=== PATIENT | male | born 1995 | race Caucasian/White ===

== ENCOUNTER 2022-04-14 09:39 | Emergency (ER) | payer BC, SELFPAY ==
[2022-04-14 09:40] VITALS: BP 135/76; PULSE 77; RESP 14; TEMP 36.6; O2SAT 97; BMI 24.7
[2022-04-14 09:43] VITALS: BP 150/76; PULSE 82; RESP 20; O2SAT 97
--- NOTE | 2022-04-14 09:52 | EDS_ITS ---
HPI History of Present Illness Chief Complaint: Shortness of Breath Informant: patient and EMS Narrative Narrative: 27-year-old male presenting to the emergency room with near syncope. Patient states that he was at work suddenly he began to get very lightheaded sweaty breathing fast and felt like he may pass out. He believes he passed out for possibly 1 second and then awoke. EMS was called. Patient states he is feeling better. He denies any chest pains or heart racing or palpitations. He states this is happened about 4 or 5 times in the past. He notes he was breathing very fast and his hands and his feet began to tingle and cramp up. [facility] Medical History Anxiety OCD (obsessive compulsive disorder) Home Medications No Known/Unobtainable [No Known Home Medications] 09/25/15 [History Last Taken Unknown] Allergy/AdvReac Type Severity Reaction Status Date / Time No Known Allergies Allergy Verified 04/23/17 16:47 Surgical History History of hernia surgery Social History (Updated 04/14/22 @ 09:[address] Chandana White DO) Smoking Status: Never smoker substance use type: does not use ROS ROS ED Constitutional Constitutional ED: Denies chills or weight loss Eyes Eyes: Denies change in vision or diplopia ENT ENT ED: Denies ear pain, rhinorrhea or sore throat Cardiovascular Cardiovascular: Reports other Details: Near syncope ; Denies chest pain, orthopnea, palpitations or racing heartbeat Respiratory/Chest Respiratory/Chest: Reports dyspnea; Denies cough or orthopnea Gastrointestinal Gastrointestinal: Denies abdominal pain, diarrhea, nausea or vomiting Genitourinary Genitourinary ED: Denies dysuria, hematuria or urinary frequency Musculoskeletal Musculoskeletal: Denies arthralgias or myalgias Integumentary Denies abscess or rash Neurologic Neurologic: Reports paresthesias; Denies headache(s) or weakness Psychiatric Psychiatric: Denies anxiety, depression, suicidal ideation or suicidal thoughts Endocrine Endocrinology: Denies polydipsia, polyphagia or polyuria Allergic/Immunologic Allergic/Immunologic ED: Denies mouth swelling, tongue swelling or urticaria EXAM Physical Exam Const Vital Signs: 04/14/22 09:40 04/14/22 09:43 04/14/22 09:43 Temperature 97.9 F Temperature Source Oral Pulse Rate 77 82 Respiratory Rate 14 20 H Respiratory Effort Normal Non-Labored Respiratory Depth Normal Respiratory Pattern Normal Blood Pressure 135/76 H 150/76 H Blood Pressure Mean 95 100 Pulse Ox 97 97 Oxygen Delivery Method Room Air Room Air Room Air Positive well nourished and well developed General Appearance ED: well developed HEENT Reports normocephalic, head/scalp atraumatic and moist mucous membranes Eyes PERRL and EOMs intact bilaterally Neck no lymphadenopathy, supple and no JVD Resp normal respiratory effort and clear to auscultation bilaterally Cardio regular rate, regular rhythm and no murmurs GI normal to inspection, nondistended, normoactive bowel sounds and non-tender Palpation: soft Back/Spine no CVA tenderness and normal ROM Extremity normal to inspection General Extremety ED: Negative for edema General Extremity: Negative for edema Neuro oriented x3 and CN's II-XII intact bilaterally Sensorium / Orientation: alert Motor Exam: strength 5/5 throughout Psych mental status grossly normal Mood & Affect: Negative for depressed or tearful Skin no rashes or lesions noted and no wounds MDM MDM MDM Narrative Medical decision making narrative: Patient has remained in a sinus rhythm on the monitor. My interpretation of the chest x-ray is no acute process. Troponin of 4. Glucose 91. Hemoglobin 15.5. At this point patient will be discharged home. He may follow-up with cardiology or primary care. Lab Data Attestation: I reviewed the patient's lab results. Labs: Laboratory Results - last 24 hr 04/14/22 04/14/22 10:05 10:05 WBC 6.2 RBC 5.06 Hgb 15.5 Hct 45.6 MCV 90.1 MCH 30.6 MCHC 34.0 RDW Std Deviation 40.3 RDW Coeff of Jason 12.2 Plt Count 196 MPV 9.8 Immature Gran % (Auto) 0.200 Neut % (Auto) 52.3 Lymph % (Auto) 33.2 [place] % (Auto) 11.1 H Eos % (Auto) 2.2 Baso % (Auto) 1.0 Absolute Neuts (auto) 3.3 Absolute Lymphs (auto) 2.07 Nucleated RBC % 0 Sodium 141 Potassium 3.3 L Chloride 108 H Carbon Dioxide 28.0 Anion Gap 5 BUN 19 H Creatinine 0.91 Estim Creat Clear Calc 128.72 Est GFR (MDRD) Af Amer 128 Est GFR (MDRD) Non-Af 105 BUN/Creatinine Ratio 20.9 H Glucose 91 Calcium 9.4 Troponin I High Sens 4 Radiography Diagnostic Testing: Clinical Impression(s) from Imaging Studies Chest X-Ray 04/14/22 10:15 IMPRESSION: Normal x-ray examination of the chest. Electronically Signed: Tomy Mike MD at 10:27 EDT , EKG Initial EKG: Attestation: I personally reviewed and interpreted this EKG as follows: Comments: Normal sinus rhythm with a ventricular rate of 69 bpm. Discharge Plan Triage Chief Complaint: Shortness of Breath ED Provider: Chandana White Dx/Rx/DC Orders Clinical Impression: Near syncope Instructions: Causes of Syncope Prescriptions: No Action No Known Home Medications Primary Care Provider: Care Physician,No Primary Referrals: Jan Santoro MD [STAFF PHYSICIAN] - As Needed (for cardiology evaluation) Jonn Alexander MD [NON-STAFF] - Disposition Disposition: Home, Self Care
--- NOTE | 2022-04-14 09:52 | EKG12_ITS ---
Test Reason : SOB Blood Pressure : / mmHG Vent. Rate : 069 BPM Atrial Rate : 069 BPM P-R Int : 146 ms QRS Dur : 108 ms QT Int : 388 ms P-R-T Axes : 063 056 065 degrees QTc Int : 415 ms Normal sinus rhythm with sinus arrhythmia Incomplete right bundle branch block Confirmed by MANOJ GILBERT, PANTERA ([id number]), publication editor BOWEN HSU ([id number]) on 04/16/2022 8:54:44 AM Referred By: ESTELLE/GABRIELA Confirmed By:PANTERA ARANDA MD
[2022-04-14 10:12] LABS: Absolute Lymphocyte Count 2.07 X10^3/uL (0.83-4.51); Absolute Neutrophil Count 3.3 X10^3/uL (2.0-7.7); Basophil# 0.06 X10^3/uL; Eosinophil# 0.14 X10^3/uL; Eosinophils% 2.2 % (0-5); Hematocrit 45.6 % (40-54); Hemoglobin 15.5 g/dL (13.0-16.5); Lymphocyte # 2.07 X10^3/ul (0.83-4.51); Lymphocyte % 33.2 % (19-41); Mean Corpuscular Hgb 30.6 pg (27.0-32.0); Mean Corpuscular Volume 90.1 fL (80-94); Mean Platelet Vol. 9.8 fl (6.2-12.0); Monocyte# 0.69 X10^3/uL; Monocyte% 11.1 % (0-10); NRBC Flagged by Analyzer 0 % (0-5); Neutrophil # 3.26 X10^3/uL (2.7-7.7); Neutrophil % 52.3 % (47-70); Platelet Count 196 K/mm3 (150-450); RBC Distribution Width CV 12.2 % (11.6-14.6); RBC Distribution Width SD 40.3 fl (35.1-43.9); Red Blood Count 5.06 M/mm3 (4.6-6.2); White Blood Count 6.2 K/mm3 (4.4-11.0)
--- NOTE | 2022-04-14 10:15 | RAD_ITS ---
STUDY: X-RAY CHEST REASON FOR EXAM: Male, 27 years old. Near syncope TECHNIQUE: Single AP portable view of the chest. COMPARISON: None. FINDINGS: EKG electrodes are seen. The lungs are clear and expanded. There is no demonstrated pleural abnormality. Normal size heart. Normal mediastinum and oscar. Normal visualized pulmonary arteries. Normal visualized aortic arch and descending thoracic aorta. Normal visualized thoracic spine. Normal visualized ribs, clavicles, and shoulders. There is no demonstrated abnormality of the visualized soft tissue structures of the upper abdomen. RAD/Chest 1 View (Portable) IMPRESSION: Normal x-ray examination of the chest. Electronically Signed: Tomy Mike MD at 10:27 EDT ,
[2022-04-14 10:29] LABS: Anion Gap 5 (5-15); BUN 19 mg/dL (7-18); BUN/Creat Ratio 20.9 RATIO (10-20); Calcium,Total 9.4 mg/dL (8.5-10.1); Chloride 108 mmol/L (98-107); Creatinine, Serum 0.91 mg/dL (0.70-1.30); EST Glomerular Filtration Rate 105 mL/min (>60); Est Glom Filt Rate - Afr Amer 128 mL/min (>60); Estimated Creatinine Clearance 128.72 ml/min; Glucose 91 mg/dL (74-106); Potassium 3.3 mmol/L (3.5-5.1); Sodium Level 141 mmol/L (136-145); Troponin-I HS 4 pg/mL (3.0-78.0)
[2022-04-14 10:49] VITALS: BP 143/85; PULSE 82; RESP 18; O2SAT 99
== END 2022-04-14 10:50 | disposition home or self-care (01) ==
PROVIDERS: Emergency Provider Emergency Medicine; Visit Provider Emergency Medicine
DX: R55 Syncope and collapse (principal); R06.02 Shortness of breath; F42.9 Obsessive-compulsive disorder, unspecified
CPT/HCPCS: 71045; 80048; 84484; 85025; 93005; 99285; A4216

== ENCOUNTER 2023-10-05 15:02 | Emergency (ER) | payer BC, SELFPAY ==
[2023-10-05 15:04] VITALS: BP 147/79; PULSE 93; RESP 24; TEMP 36.6; O2SAT 99; BMI 26.1
--- NOTE | 2023-10-05 15:28 | EKG12_ITS ---
Test Reason : DIZZINESS/SYNCOPE Blood Pressure : / mmHG Vent. Rate : 093 BPM Atrial Rate : 093 BPM P-R Int : 152 ms QRS Dur : 108 ms QT Int : 340 ms P-R-T Axes : 070 018 059 degrees QTc Int : 422 ms Normal sinus rhythm Normal ECG Confirmed by DENZEL GILBERT, MAREN ([id number]), supervising film or videotape editor JOSE M ADAMS ([id number]) on 10/12/2023 8:18:31 AM Referred By: YESICA Confirmed By:MAREN MAHONEY MD
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
[2023-10-05] MEDS: 0.9% Normal Saline (1000mL) 1,000 ML 1000 ML IV (15:38)
[2023-10-05 15:44] VITALS: BP 128/68; BP 132/69; BP 144/72; PULSE 110; PULSE 89; PULSE 92
[2023-10-05 15:45] LABS: Absolute Lymphocyte Count 1.08 X10^3/uL (0.83-4.51); Absolute Neutrophil Count 8.7 X10^3/uL (2.0-7.7); Basophil# 0.06 X10^3/uL; Basophil% 0.6 % (0-1); Eosinophil# 0.19 X10^3/uL; Eosinophils% 1.8 % (0-5); Hematocrit 49.3 % (40-54); Hemoglobin 16.1 g/dL (13.0-16.5); Lymphocyte # 1.08 X10^3/ul (0.83-4.51); Lymphocyte % 10.2 % (19-41); Mean Corp Hgb Conc 32.7 g/dL (32-36); Mean Corpuscular Hgb 29.8 pg (27.0-32.0); Mean Corpuscular Volume 91.3 fL (80-94); Mean Platelet Vol. 10.4 fl (6.2-12.0); Monocyte# 0.54 X10^3/uL; Monocyte% 5.1 % (0-10); NRBC Flagged by Analyzer 0 % (0-5); Neutrophil # 8.72 X10^3/uL (2.7-7.7); Neutrophil % 82.1 % (47-70); Platelet Count 214 K/mm3 (150-450); RBC Distribution Width CV 12.2 % (11.6-14.6); RBC Distribution Width SD 40.5 fl (35.1-43.9); White Blood Count 10.6 K/mm3 (4.4-11.0)
[2023-10-05] MEDS: 0.9% Normal Saline (1000mL) 1,000 ML 999 ML IV (17:01)
[2023-10-05 17:33] LABS: ALB/GLOB Ratio 1.1 RATIO (0.9-2.4); AST(SGOT) 18 U/L (15-37); Alanine Aminotransfer ALT/SGPT 29 U/L (16-61); Albumin, Serum 3.9 g/dL (3.2-5.0); Alkaline Phosphatase 87 U/L (45-117); Anion Gap 4 (5-15); BUN 18 mg/dL (7-18); BUN/Creat Ratio 18.2 RATIO (10-20); Calcium,Total 9.2 mg/dL (8.5-10.1); Chloride 108 mmol/L (98-107); Creatinine, Serum 0.99 mg/dL (0.70-1.30); EST Glomerular Filtration Rate 95 mL/min (>60); Est Glom Filt Rate - Afr Amer 115 mL/min (>60); Estimated Creatinine Clearance 120.84 ml/min; Globulin 3.4 g/dL (2.2-4.2); Glucose 99 mg/dL (74-106); Potassium 3.5 mmol/L (3.5-5.1); Protein, Total 7.3 g/dL (6.4-8.2); Sodium Level 139 mmol/L (136-145); Troponin-I HS 4 pg/mL (3.0-78.0)
[2023-10-05 18:07] VITALS: BP 127/72; PULSE 91; RESP 15; O2SAT 97
== END 2023-10-05 18:09 | disposition home or self-care (01) ==
PROVIDERS: Emergency Provider Emergency Medicine; Visit Provider Emergency Medicine
DX: I95.1 Orthostatic hypotension (principal)
CPT/HCPCS: 80053; 84484; 85025; 93005; 96360; 96361; 99285; J7030